=== PATIENT | female | born 1995 | race Two or more races ===

== ENCOUNTER 2018-11-02 18:23 | Emergency (ER) | payer SELFPAY ==
[2018-11-02] MEDS ORDERED: LIDOCAINE 1% INJ-PF (10 MG/ML) 30 ML SDV INJ ONE (20:34)
[2018-11-02] MEDS ORDERED: DIPH/PERTUSS(ACELL)/TETANUS VAC/PF 0.5 ML SYR (>=10YO) IM ONE (20:34)
--- NOTE | 2018-11-02 21:03 | RADIOLOGY REPORT (SQ) ---
EXAM DESCRIPTION: XR HAND 3 OR MORE VIEWS COMPLETED DATE/TME: 11/02/2018 20:33 CLINICAL HISTORY: 23 years, Female, left hand laceration 1st web space through palm COMPARISON: None. NUMBER OF VIEWS: TECHNIQUE: LIMITATIONS: None. FINDINGS: No evidence of radiopaque foreign body. No fracture. Mineralization of bone appears normal. IMPRESSION: No fracture or radiopaque foreign body. copyright 2010 [employer]- All Rights Reserved
--- NOTE | 2018-11-02 21:16 | ER Document Report ---
HPI - HPI Time Seen by Provider: 11/02/18 19:59 Pain Level: 5 Notes: Patient is a 23-year-old female no significant past medical history who presents to the emergency department complaining of an accidental knife puncture wound to her left hand prior to arrival. Patient states it was a kitchen knife and it was relatively clean. She is unsure of her last tetanus. Denies drug allergies. The pain does not radiate. She still able to move her hand without any difficulty otherwise. No other concerns or complaints. Research Associate Policy was used, Raman. Denies any headache, fever, neck pain, URI, sore throat, chest pain, palpitations, syncope, cough, shortness of breath, wheeze, dyspnea, abdominal pain, nausea/vomiting/diarrhea, urinary retention, dysuria, hematuria, loss of control of bowel or bladder, numbness/tingling, muscle paralysis/weakness, or rash. - ROS Systems Reviewed and Negative: Yes All other systems reviewed and negative - CONSTITUTIONAL Constitutional: DENIES: Fever, Chills - REPRODUCTIVE Reproductive: DENIES: : Past Medical History - Social History Smoking Status: Never Smoker Family History: Reviewed & Not Pertinent Patient has suicidal ideation: No Patient has homicidal ideation: No Renal/ Medical History: Denies: Hx Peritoneal Dialysis Vertical Provider Document - CONSTITUTIONAL Agree With Documented VS: Yes Notes: PHYSICAL EXAMINATION: GENERAL: Well-appearing, well-nourished and in no acute distress. LUNGS: Breath sounds clear to auscultation bilaterally and equal. No wheezes rales or rhonchi. HEART: Regular rate and rhythm without murmurs, rubs, gallops. Musculoskeletal: Left hand: FROM to passive/active. Strength 5+/5. N/V intact distal. Extremities: No cyanosis, clubbing, or edema b/l. Peripheral pulses 2+. Capillary refill less than 3 seconds. NEUROLOGICAL: Cranial nerves grossly intact. Normal speech, normal gait. Norm al sensory, motor exams PSYCH: Normal mood, normal affect. SKIN: Left hand: there is a 1.2cm linear laceration/puncture to the 1st web space with a small laceration to the palm where the knife reportedly went through. There is no evidence of arterial bleeding. The anterior laceration appears narrow and without any active bleeding. - INFECTION CONTROL TRAVEL OUTSIDE OF THE [place] IN LAST 30 DAYS: No Course - Re-evaluation Re-evalutation: 11/02/18 21:[address] Almendraez who is in agreement with dispo/plan: Patient is an afebrile, well-hydrated, 23-year-old female who presents emergency department with a puncture/laceration to the left hand. Vitals are acceptable without any significant tachycardia, tachypnea, or hypoxia. PE is otherwise unremarkable for any neurovascular compromise, obvious tendon/ligament rupture, obvious fracture/dislocation, septic joint. X-ray was unremarkable for any acute pathology. Wound was thoroughly irrigated and cleansed. Wound edges were approximated appropriately to the larger wound with 5 simple interrupted sutures. The smaller wound was approximated appropriately utilizing Steri- Strips. Wound dressing was placed and wound instructions reviewed. Tetanus was updated today. Patient was given Tylenol p.o. Patient is nontoxic-appearing. No other labs or imaging warranted at this time based on H&P. I will send her home with a perception for Keflex. Conservative measures otherwise for symptoms. Recheck with your PCM in 3-5 days. Schedule a follow-up with orthopedics. Return to the ED with any worsening/concerning symptoms otherwise as reviewed in discharge. Patient is in agreement. - Vital Signs Vital signs: Temp Pulse Resp BP Pulse Ox 98.6 F 76 16 99/64 L 100 11/02/18 18:43 11/02/18 18:43 11/02/18 18:43 11/02/18 18:43 11/02/18 18:43 Procedures - Laceration/Wound Repair Left Hand Time completed: 21:35 Wound length (cm): 1.2 - 1cm narrow to the palm Wound's Depth, Shape: Linear, Other - through the hand Laceration pre-procedure: Sterile PPE donned, Sterile drapes applied, Other - c hlorehexadine/saline Anesthetic type: 1% Lidocaine Volume Anesthetic (mLs): 6 Wound explored: Clean, No foreign body removed Irrigated w/ Saline (mLs): 200 Wound Debrided: none Wound Repaired With: Sutures, Steri-strips Suture Size/Type: 4:0, Nylon Number of Sutures: 5 - 3 in web space, 2 in palm Layer Closure?: No Post-procedure wound care: Sterile dressing applied Post-procedure NV exam normal: Yes Complications: No Discharge - Discharge Clinical Impression: Laceration of left hand Qualifiers: Encounter type: initial encounter Foreign body presence: without foreign body Qualified Code(s): S61.412A - Laceration without foreign body of left hand, initial encounter Condition: Stable Disposition: HOME, SELF-CARE Instructions: Antibiotic Ointment Protection ([facility]), Laceration Care ([facility]), Prophylactic Antibiotic ([facility]), Soap Cleansing ([facility]), Tetanus Immunization Given ([facility]) Additional Instructions: Do not shower or bathe for 24 hours. After 24 hours you may shower but no submersion of the wound under water. Keep the original dressing on the wound for 24 hours unless the drainage soaks through. Change the dressing daily thereafter and keep the knots of the suture material clean from any dried discharge. You may leave the wound open to the air once there is no more discharge. See your PCM in 2-3 days for a recheck. Monitor for any signs of worsening pain or redness, purulent drainage, streaks, and/or fever. Return to the ED if noticing any of the above symptoms or as needed. Take medications as directed. Your sutures will need to be removed in 10 days. Call orthopedics to schedule an appointment for further evaluation and margo us next week. Prescriptions: Cephalexin Monohydrate [Keflex 500 mg Capsule] 500 mg PO TID #21 capsule Referrals: GUILLERMO STEPHENSON DO [ACTIVE STAFF] - Follow up in 3-5 days
[2018-11-02] MEDS ORDERED: ACETAMINOPHEN 325 MG TABLET PO ONE (21:18)
[2018-11-02] MEDS ORDERED: CEPHALEXIN 500 MG CAPSULE PO ONE (21:49)
[2018-11-02 22:18] VITALS: BP 101/64
== END 2018-11-02 22:18 | disposition home or self-care (01) ==
LOC: ER 18:23
DX: S61.412A Laceration without foreign body of left hand, initial encounter (principal); W26.0XXA Contact with knife, initial encounter; Z23 Encounter for immunization
CPT/HCPCS: 99283; 90471; 73130; 90715; 12001; J3490

== ENCOUNTER 2018-11-11 08:56 | Emergency (ER) | payer SELFPAY ==
[2018-11-11 09:03] VITALS: BP 104/58
--- NOTE | 2018-11-11 09:23 | ER Document Report ---
HPI - HPI Patient complains to provider of: Suture removal Time Seen by Provider: 11/11/18 09:17 Onset: Other - 9 days ago Onset/Duration: Better Pain Level: 1 Context: Patient presents for suture removal to 2 lacerations to left hand. Patient denies any problems or complications from the wound. Exacerbated by: Denies Relieved by: Denies Similar symptoms previously: No Recently seen / treated by doctor: Yes - ROS ROS below otherwise negative: Yes Systems Reviewed and Negative: Yes All other systems reviewed and negative - CONSTITUTIONAL Constitutional: DENIES: Fever - REPRODUCTIVE Reproductive: DENIES: : - DERM Skin Color: Normal Skin Problems: Laceration Past Medical History - General Information source: Patient - Social History Smoking Status: Never Smoker Frequency of alcohol use: None Drug Abuse: None Lives with: Family Family History: Reviewed & Not Pertinent - Medical History Medical History: Negative Renal/ Medical History: Denies: Hx Peritoneal Dialysis Surgical Hx: Negative Vertical Provider Document - CONSTITUTIONAL Agree With Documented VS: Yes Exam Limitations: No Limitations General Appearance: WD/WN, No Apparent Distress - INFECTION CONTROL TRAVEL OUTSIDE OF THE [place] IN LAST 30 DAYS: No - HEENT HEENT: Atraumatic, Normocephalic - NECK Neck: Normal Inspection - RESPIRATORY Respiratory: No Respiratory Distress - CARDIOVASCULAR Pulses: Normal: Radial - MUSCULOSKELETAL/EXTREMETIES Musculoskeletal/Extremeties: MAEW, FROM - NEURO Level of Consciousness: Awake, Alert, Appropriate Motor/Sensory: No Motor Deficit - DERM Integumentary: Warm, Dry, Laceration - Patient with 5 intact sutures to 2 lacerations to the palmar and dorsal aspect of the webspace between the left thumb and second finger. Wound edges approximated, no surrounding erythema Course - Vital Signs Vital signs: Temp Pulse Resp BP Pulse Ox 98.5 F 87 18 104/58 L 100 11/11/18 09:01 11/11/18 09:01 11/11/18 09:01 11/11/18 09:01 11/11/18 09:01 Discharge - Discharge Clinical Impression: Encounter for removal of sutures Condition: Stable Disposition: HOME, SELF-CARE Instructions: Suture Removal Additional Instructions: Return immediately for any new or worsening symptoms Followup with your primary care provider, call tomorrow to make a followup appointment Referrals: GUILLERMO STEPHENSON DO [ACTIVE STAFF] - Follow up as needed Print Language: Pashto
== END 2018-11-11 09:30 | disposition home or self-care (01) ==
LOC: ER 08:56
DX: S61.412D Laceration without foreign body of left hand, subsequent encounter (principal); X58.XXXD Exposure to other specified factors, subsequent encounter